=== PATIENT | female | born 1980 | race Caucasian/White ===

== ENCOUNTER 2016-10-03 09:44 | Emergency (ER) | payer BC ==
[2016-10-03 10:09] VITALS: BP 116/78
--- NOTE | 2016-10-03 12:44 | UC ---
Skin Complaint HPI - HPI Summary HPI Summary: THREE DAYS OF RED ITCH AREA ON LEFT KNEE. ALSO BEHIND BOTH KNEES. SKIN HAS BEEN DRY AND HAS BEEN USING LOTION. 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 - History of Current Complaint Chief Complaint: UCSkin Time Seen by Provider: 10/03/16 12:24 Stated Complaint: RASH Hx Obtained From: Patient, Family/Signal Manager Hx Last Menstrual Period: 09/16/16 Onset/Duration: Gradual Onset, Lasting Days, Still Present Skin Exposure Onset/Duration: Days Ago Onset Severity: Mild Current Severity: Mild Location: Discrete - LEFT (ANTEROMEDIAL) KNEE, ALSO BILAT POSTERIOR KNEE Character: Pruritus, Redness Aggravating: Nothing Alleviating: Nothing Associated Signs & Symptoms: Positive: Rash. Negative: Fever, Wheezing, Syncope , Drainage, Bruising, Tenderness, Red Streaks Related History: Possible Reaction to: Environmental Exposure - Allergy/Home Medications Allergies/Adverse Reactions: Allergies Allergy/AdvReac Type Severity Reaction Status Date / Time No Known Allergies Allergy Verified 10/03/16 10:10 Home Medications: Home Medications NK [No Home Medications Reported] 10/03/16 [History Confirmed 10/03/16] Review of Systems Constitutional: Negative Skin: Rash - LEFT KNEE Eyes: Negative ENT: Negative Respiratory: Negative Cardiovascular: Negative Gastrointestinal: Negative Genitourinary: Negative Motor: Negative Neurovascular: Negative Musculoskeletal: Negative Neurological: Negative Psychological: Negative All Other Systems Reviewed And Are Negative: Yes PMH/Surg Hx/FS Hx/Imm Hx Previously Healthy: Yes Cardiovascular History Of: Denies: Hypertension Respiratory History Of: Denies: Asthma - Surgical History Surgical History: Yes Surgery Procedure, Year, and Place: right ankle at age 13 - Family History Known Family History: Negative: Blood Disorder - Social History Occupation: Employed Full-time Lives: With Family Alcohol Use: Weekly Substance Use Type: None Smoking Status (MU): Never Smoked Tobacco - Immunization History Most Recent Influenza Vaccination: jun 2016 Physical Exam Triage Information Reviewed: Yes Appearance: Well-Appearing, No Pain Distress, Well-Nourished Vital Signs: Initial Vital Signs Temp 97.6 F 10/03/16 10:05 Pulse 68 10/03/16 10:05 Resp 26 10/03/16 10:05 BP 116/78 10/03/16 10:05 Pulse Ox 100 10/03/16 10:05 Vital Signs Reviewed: Yes Eye Exam: Normal Eyes: Positive: Conjunctiva Clear ENT Exam: Normal ENT: Positive: Normal ENT inspection, Hearing grossly normal, TMs normal Dental Exam: Normal Neck exam: Normal Respiratory Exam: Normal Respiratory: Positive: Chest non-tender, Lungs clear, Normal breath sounds, No respiratory distress, No accessory muscle use Cardiovascular Exam: Normal Cardiovascular: Positive: RRR, No Murmur, Pulses Normal Abdominal Exam: Normal Musculoskeletal Exam: Normal Musculoskeletal: Positive: Strength Intact Neurological Exam: Normal Psychological Exam: Normal Skin: Positive: rashes - LEFT KNEE Course/Dx - Differential Diagnoses - Skin Complaint Differential Diagnoses: Cellulitis, Contact Dermatitis, Eczema, Impetigo, MRSA, Scabies, Tinea - Diagnoses Provider Diagnoses: CONTACT DERMATITIS, BILATERAL KNEES Discharge - Discharge Plan Condition: Stable Disposition: HOME Patient Education Materials: Dermatitis (ED) Referrals: Rocío Palencia MD [Primary Care Provider] - Additional Instructions: PLEASE USE OTC STEROID CREAM ON EFFECTED AREA DIRECTED Images Front/Back of Body, Lg ([place]): 1 - 1CM X 2CM EXCORIATED ERRETHEMATOUS PAPULAR RASH 2 - SCANT ERRETHEMA BILATERAL POSTERIOR KNEES NO DEFINED MARGINS
== END 2016-10-03 12:40 | disposition home or self-care (01) ==
LOC: UCEAST 09:44
DX: L25.9 Unspecified contact dermatitis, unspecified cause (principal)
CPT/HCPCS: 99211; G0463